=== PATIENT | female | born 1940 | race Caucasian/White ===

== ENCOUNTER 2020-07-16 08:39 | Outpatient (REF) | payer MEDICARE, SELFPAY ==
[2020-07-16 11:31] LABS: Alanine Aminotransferase 13 U/L (0-31); Aspartate Amino Transferase 17 U/L (5-31); Cholesterol 191 mg/dL; HDL Cholesterol 49 mg/dL; LDL Cholesterol Calculated 125 mg/dl; Triglycerides 87 mg/dL
== END 2020-07-16 08:40 | disposition home or self-care (01) ==
LOC: HO.HMGCLDS 08:39
PROVIDERS: PCP Internal Medicine; Visit Provider Internal Medicine
DX: E78.5 Hyperlipidemia, unspecified (principal)
CPT/HCPCS: 80061; 84450; 84460

== ENCOUNTER 2020-12-04 07:56 | Outpatient (REF) | payer MEDICARE, SELFPAY ==
[2020-12-04 12:07] LABS: Alanine Aminotransferase 14 U/L (0-31); Aspartate Amino Transferase 18 U/L (5-31); Cholesterol 171 mg/dL; HDL Cholesterol 60 mg/dL; LDL Cholesterol Calculated 96 mg/dl; Triglycerides 76 mg/dL
== END 2020-12-04 07:57 | disposition home or self-care (01) ==
LOC: HO.HMGCLDS 07:56
PROVIDERS: PCP Internal Medicine; Visit Provider Internal Medicine
DX: E78.5 Hyperlipidemia, unspecified (principal)
CPT/HCPCS: 36415; 80061; 84450; 84460

== ENCOUNTER 2021-01-31 16:55 | Emergency (ER) | payer MEDICARE, SELFPAY ==
--- NOTE | ~2021-01-31 | CT_ITS ---
EXAMINATION: CT HEAD WITHOUT CONTRAST CLINICAL INFORMATION: Head injury 6 weeks ago. Ongoing headache. COMPARISON: CT head 02/10/2015 TECHNIQUE: Contiguous axial imaging was performed from the skull base to vertex without intravenous administration of contrast. This CT examination was performed using dose optimization techniques as appropriate, variously including the following: *Automated exposure control *Adjustment of mA and/or kV according to patient size (this includes techniques or standardized protocols for targeted exams where dose is matched to indication/reason for exam; i.e. extremities or head) *Use of iterative reconstruction technique DLP: 670 mGy-cm FINDINGS: There is no evidence of acute intracranial hemorrhage or territorial infarction. No abnormal mass effect or midline shift is seen. [place] to white matter differentiation is well preserved. No extra-axial fluid collections are identified. The ventricles are normal in size. There is no abnormal attenuation within the brain parenchyma. The osseous structures and soft tissues are normal. The mastoid air cells and visualized portions of the paranasal sinuses are well aerated. CT/CT head/brain wo con IMPRESSION: No acute intracranial pathology.
[2021-01-31 18:00] VITALS: BP 153/64; PULSE 72; RESP 18; TEMP 36.6; O2SAT 99; BMI 33.3
[2021-01-31 20:12] VITALS: BP 176/58; PULSE 68; RESP 16; TEMP 36.7; O2SAT 99
--- NOTE | 2021-01-31 21:46 | ED_ITS ---
HPI - Headache General Chief Complaint: Headache Stated Complaint: Head pain Time Seen by Provider: 01/31/21 21:14 Source: patient Mode of arrival: ambulatory Limitations: no limitations History of Present Illness HPI Narrative: Patient comes emergency room complaining of scalp pain in different areas at different times. Patient states on December 19, patient got hit in the head by the trunk door as it was showering. Initially patient had a lump in her head, self resolved. Patient denies being on blood thinners. Patient did not lose consciousness. Patient states that since then, it has been 6 weeks, but she continues having intermittent scalp pain in different areas of her head. Patient denies headache. Patient went to see her primary care physician, she was advised to come to the emergency room for further evaluation. Patient denies neck pain, no arm pain, no back pain, no other injuries Related Data Home Medications Medication Instructions Recorded Confirmed aspirin 81 mg tablet,delayed 81 mg PO DAILY 07/22/20 12/13/20 release cholecalciferol (vitamin D3) 25 25 mcg PO DAILY 07/22/20 12/13/20 mcg (1,000 unit) capsule flu vacc (65yr IM 07/22/20 12/13/20 up)-MF59C(PF) 60 mcg(15 mcgx4)/0.5 mL IM syringe diphenhydramine 25 ml PO 12/13/20 12/13/20 mg-acetaminophen 500 mg/15 mL oral solution lxdouqmi-qyhqfvn-tewq-lutein tablet tab PO 12/13/20 12/13/20 multivitamin with minerals 1 tab PO DAILY 12/13/20 12/13/20 Previous Rx's Medication Instructions Recorded furosemide 20 mg tablet 20 mg PO DAILY #90 tab 12/13/20 ibuprofen 800 mg tablet 800 mg PO Q12H PRN #60 tab 12/13/20 rosuvastatin 5 mg tablet 5 mg PO .q OD 90 Days #45 tab 12/13/20 Allergies Allergy/AdvReac Type Severity Reaction Status Date / Time Sulfa (Sulfonamide Allergy Intermediate SKIN Verified 01/31/21 18:00 Antibiotics) SLOUGHING MOUTH Review of Systems Review of Systems: Constitutional : No Weight loss, No Fever, No Chills, No Night Sweats, No Fatigue, No Malaise ENT/Mouth : No Hearing loss, No Ear Pain, No Nasal Congestion, No Sinus Pain, No Hoarseness, No sore throat, No Rhinorrhea, No Swallowing Difficulty Eyes: No Eye Pain, No Swelling, No Redness, No Foreign Body, No Discharge, No Vision Changes Cardiovascular : No Chest Pain, No SOB, No Dyspnea on Exertion, No Orthopnea, No Edema, No Palpitations Respiratory : No Cough, No Sputum, No Wheezing, No Smoke Exposure, No Dyspnea Gastrointestinal : No Nausea, No Vomiting, No Diarrhea, No Constipation, No abdominal Pain, No Hematochezia, No Melena Genitourinary : no irregular bleeding, No Dysuria, No Urinary Frequency, No Hematuria, No Urinary Incontinence, No Urgency, No Flank Pain, No Urinary Flow Changes, No Hesitancy Musculoskeletal : No joint pain, No Myalgias, No Joint Swelling Skin : No Skin Lesions, No rash Neuro : No Weakness, No Numbness, No Paresthesias, No Loss of Consciousness, No Dizziness, No Headache, but complaining of scalp discomfort in different areas o f the head intermittently Psych : No Anxiety/Panic, No Depression, No SI/HI/AH/VH, No Social Issues, Heme/Lymph: No Bruising, No Bleeding,No Lymphadenopathy Endocrine : No Polyuria, No Polydipsia, No Temperature Intolerance PMFSH Past Medical History Medical History Hip fracture, left Hyperlipidemia Obesity Osteoarthritis of hip Osteoarthritis of hip Severe aortic stenosis Severe aortic stenosis Surgical History History of arthroscopic knee surgery History of hip surgery History of surgery Family History Family History Father Medical history non-contributory Mother Medical history non-contributory Social History Social History Alcohol intake: never Smoking Status: Never smoker Use of substances other than those prescribed or required for medical reasons: No Advance Directives: No Physical Exam Vital Signs: Vital Signs: Last Vital Signs Temp 97.8 F 01/31/21 22:00 Pulse 64 01/31/21 22:00 Resp 16 01/31/21 22:00 BP 152/72 H 01/31/21 22:00 Pulse Ox 99 01/31/21 22:00 Body Mass Index 33.3 Appearance: Alert. Oriented X3. No acute distress. Eyes: Pupils equal, round and reactive to light. ENT: Pharynx normal. Neck: Normal inspection. Neck supple. No lymph nodes noted. No crepitus CVS: Normal heart rate and rhythm. Pulses normal. Normal S1 and S2 Respiratory: No respiratory distress. Breath sounds normal. No Wheezing. No rales Abdomen: Soft and nontender. No rigidity. No distention. good BS x4 Skin: Skin warm and dry. Normal skin color. Normal skin turgor. Scalp within normal limits, no ecchymosis, no vesicles, no rash Extremities: No lower extremity edema. No lower extremity edema. No Lacerations. No Rash Neuro: Oriented X 3. No motor deficit. No sensory deficit. Moving all extermities. No slurred speech. Course Course Course Narrative: I discussed CT scan with the patient, no acute findings. Patient denies headache or any other neurological symptoms MDM - Headache Imaging Data Head CT: Radiologist's impression: FINDINGS: There is no evidence of acute intracranial hemorrhage or territorial infarction. No abnormal mass effect or midline shift is seen. [place] to white matter differentiation is well preserved. No extra-axial fluid collections are identified. The ventricles are normal in size. There is no abnormal attenuation within the brain parenchyma. The osseous structures and soft tissues are normal. The mastoid air cells and visualized portions of the paranasal sinuses are well aerated. CT/CT head/brain wo con IMPRESSION: No acute intracranial pathology. Discharge Plan Discharge Clinical Impression: Scalp pain Patient Disposition: Home, Self-Care Instructions: Acute Headache (ED) Additional Instructions: Please follow-up with your primary care physician tomorrow. If you have any worsening or new symptoms, please return to the emergency room or call 911 Prescriptions: No Action Fluad Quad 2019-(65y up)(PF) 60 mcg (15 mcg x 4)/0.5 mL syringe IM RF: 0 cholecalciferol (vitamin D3) 25 mcg (1,000 unit) capsule 25 mcg PO DAILY RF: 0 aspirin [Adult Low Dose Aspirin] 81 mg tablet,delayed release (DR/EC) 81 mg PO DAILY RF: 0 yafjrzin-tsswbiv-xsss-lutein Tablet PO RF: 0 multivitamin with minerals [Hair,Skin and Nails] Tablet 1 tab PO DAILY RF: 0 diphenhydramine-acetaminophen 25-500 mg-mg/mL solution PO RF: 0 ibuprofen 800 mg tablet 800 mg PO Q12H PRN (Reason: pain) Qty: 60 RF: 1 furosemide 20 mg tablet 20 mg PO DAILY Qty: 90 RF: 0 rosuvastatin 5 mg tablet 5 mg PO .q OD 90 Days Qty: 45 RF: 2
[2021-01-31 22:00] VITALS: BP 152/72; PULSE 64; RESP 16; TEMP 36.6; O2SAT 99
== END 2021-01-31 23:06 | disposition home or self-care (01) ==
PROVIDERS: Emergency Provider Emergency Medicine; PCP Internal Medicine
DX: R20.8 Other disturbances of skin sensation (principal); E78.5 Hyperlipidemia, unspecified; Z79.82 Long term (current) use of aspirin
CPT/HCPCS: 70450; 99284

== ENCOUNTER 2021-04-30 07:59 | Outpatient (REF) | payer MEDICARE, SELFPAY ==
--- NOTE | ~2021-04-30 | XR_ITS ---
EXAMINATION: KNEE X-RAY CLINICAL INFORMATION: Pain COMPARISON: Previous x-ray most recent December 2019 TECHNIQUE: Standing AP view of both knees and lateral and sunrise view of the right knee FINDINGS: Right knee: There may be mild varus angulation. No fracture or dislocation is seen. There is arthritis at the medial femoral tibial and patellofemoral joints. There is a small joint effusion. There is evidence of atherosclerotic disease. Standing AP view of the left knee demonstrates medial femoral tibial joint space narrowing and lateral femoral tibial meniscal calcification. XR/XR knee RT 2V IMPRESSION: Bilateral arthritis.
--- NOTE | ~2021-04-30 | XR_ITS ---
EXAMINATION: KNEE X-RAY CLINICAL INFORMATION: Pain COMPARISON: Previous x-ray most recent December 2019 TECHNIQUE: Standing AP view of both knees and lateral and sunrise view of the right knee FINDINGS: Right knee: There may be mild varus angulation. No fracture or dislocation is seen. There is arthritis at the medial femoral tibial and patellofemoral joints. There is a small joint effusion. There is evidence of atherosclerotic disease. Standing AP view of the left knee demonstrates medial femoral tibial joint space narrowing and lateral femoral tibial meniscal calcification. XR/XR knee standing BI IMPRESSION: Bilateral arthritis.
== END 2021-04-30 08:00 | disposition home or self-care (01) ==
LOC: HO.HOSX 07:59
PROVIDERS: Visit Provider Orthopaedic Surgery
DX: M17.11 Unilateral primary osteoarthritis, right knee (principal)
CPT/HCPCS: 20610; 73560; 73565; 99212; J1040

== ENCOUNTER 2021-09-09 08:24 | Outpatient (REF) | payer MEDICARE, SELFPAY ==
[2021-09-09 12:14] LABS: Alanine Aminotransferase 11 U/L (0-31); Anion Gap 11 (12-20); Aspartate Amino Transferase 16 U/L (5-31); Blood Urea Nitrogen 19 mg/dL (9-16); Calcium 9.2 mg/dL (8.4-10.2); Carbon Dioxide 25 mmol/L (22-29); Chloride 110 mmol/L (96-108); Cholesterol 189 mg/dL; Estimated Glomerular Filt Rate > 60; Glucose Fasting 112 mg/dL (60-99); HDL Cholesterol 49 mg/dL; LDL Cholesterol Calculated 123 mg/dl; Potassium 4.4 mmol/L (3.3-5.1); Sodium 142 mmol/L (135-145); Triglycerides 87 mg/dL
[2021-09-09 12:36] LABS: Vitamin D 25-OH Total 25.1 ng/mL (>30)
== END 2021-09-09 08:25 | disposition home or self-care (01) ==
LOC: HO.HMGCLDS 08:24
PROVIDERS: PCP Internal Medicine; Visit Provider Internal Medicine
DX: I35.0 Nonrheumatic aortic (valve) stenosis (principal); E66.9 Obesity, unspecified; E78.2 Mixed hyperlipidemia; I10 Essential (primary) hypertension; Z78.0 Asymptomatic menopausal state
CPT/HCPCS: 36415; 80048; 80061; 82306; 84450; 84460

== ENCOUNTER 2021-10-02 10:22 | Outpatient (REF) | payer MEDICARE, SELFPAY ==
--- NOTE | ~2021-10-02 | MM_ITS ---
EXAMINATION: BONE DENSITOMETRY CLINICAL INDICATION: Other specified disorders of bone density and structure. COMPARISON: Previous BD dated 05/13/2018 and baseline BD dated 09/04/2009. TECHNIQUE: Using a CRM[employer] DXA System (software version: 13.1) manufactured by [employer], dual-energy x-ray absorptiometry was performed of the lumbar spine and right forearm radius 33%. The images are of good technical quality. Summary results are attached. FINDINGS: AP SPINE L1-L4: Current: BMD 1.052 g/cm2, Z-score -0.4, T-score -1.1, osteopenia, 0.9% increase from previous, 8.8% decrease from baseline (<5% change is not significant). Prior: BMD 1.043 g/cm2. Baseline: BMD 1.154 g/cm2. RIGHT FEMUR, NECK: Current: BMD 0.787 g/cm2, Z-score -0.4, T-score -1.8, osteopenia. Prior: BMD 0.795 g/cm2. Baseline: BMD 0.799 g/cm2. RIGHT FEMUR, TOTAL: Current: BMD 0.701 g/cm2, Z-score -1.3, T-score -2.4, osteopenia, 6.0% decrease from previous, 12.4% decrease from baseline (<5% change is not significant). Prior: BMD 0.746 g/cm2. Baseline: BMD 0.800 g/cm2. IDENTIFIED RISK FACTORS: Height loss, low calcium intake, family history (parental hip fracture), history of fracture (adult), menopause. HISTORY OF FRACTURE: Femur/hip. MEDICATIONS: Vitamin D. MM/XR DEXA axial skeleton IMPRESSION: 1. DIAGNOSIS: Osteopenia based on the lowest T-score value of -2.4 in the total femur applying World Health Organization criteria. 2. 10-YEAR FRACTURE RISK PREDICTION, FRAX: Major osteoporotic fracture (clinical spine, forearm, hip or shoulder) 32.6%. Hip fracture 18.5%. 3. Treatment Recommendations: NOF guidelines recommend consideration for treatment in postmenopausal women and men age 50 and older presenting with the following: -A hip or vertebral (clinical or morphometric) fracture. -T-score less than or equal to -2.5 at the femoral neck or spine after appropriate evaluation to exclude secondary causes. -Low bone mass at the hip or spine and a 10-year fracture probability by FRAX of greater than or equal to 3% for hip fracture or greater than or equal to 20% for major osteoporotic fracture based on the [place] adapted WHO algorithm. 4. Other Recommendations: All treatment decisions require clinical judgment and consideration of individual patient factors, including patient preferences, comorbidities, previous drug use, risk factors not captured in the FRAX model (e.g. frailty, falls, vitamin D deficiency, increased bone turnover, interval significant decline in bone density) and possible under or overestimation of fracture risk by FRAX. Additional medical evaluation for secondary cause of low bone mineral density may be appropriate. FUTURE SCAN RECOMMENDATION: People with diagnosed cases of osteoporosis or at high risk for fracture should have regular bone mineral density tests. For patients eligible for Medicare, routine testing is allowed once every 2 years. The testing frequency can be increased to one year for patients who have rapidly progressing disease, those who are receiving or discontinuing medical therapy to restore bone mass, or have additional risk factors.
== END 2021-10-02 10:23 | disposition home or self-care (01) ==
LOC: HO.MAMMO 10:22
PROVIDERS: Visit Provider Internal Medicine
DX: Z13.820 Encounter for screening for osteoporosis (principal); M85.89 Other specified disorders of bone density and structure, multiple sites; E83.51 Hypocalcemia; Z78.0 Asymptomatic menopausal state; Z79.899 Other long term (current) drug therapy
CPT/HCPCS: 77080

== ENCOUNTER 2021-10-11 23:57 | Emergency (ER) | payer MEDICARE, SELFPAY ==
--- NOTE | ~2021-10-11 | CT_ITS ---
EXAMINATION: CT ANGIOGRAM HEAD AND NECK CLINICAL INFORMATION: Right eye blurry vision. Improving. COMPARISON: 01.31.2021 TECHNIQUE: Unenhanced CT examination of the head was performed initially. Test bolus sequences followed by intravenous administration 70 mL of Omnipaque 350 intravenous contrast. Helical imaging was performed in the axial plane from the mediastinum to the skull vertex. Delayed postcontrast imaging of the head was also performed. The data was processed at the seating and mobility technologist's workstation for generation of MIP sequences. Three-dimensional volume rendered reformatted images were also generated at an offline 3-D workstation. This CT examination was performed using dose optimization techniques as appropriate, variously including the following: *Automated exposure control *Adjustment of mA and/or kV according to patient size (this includes techniques or standardized protocols for targeted exams where dose is matched to indication/reason for exam; i.e. extremities or head) *Use of iterative reconstruction technique The degree of stenosis determined by NASCET criteria. DLP: 2290 mGy-cm FINDINGS: SOFT TISSUES AND LUNG APICES: No overt abnormality is appreciated. CTA NECK: The aortic arch has a classic configuration and the major arch vessel origins are non-stenotic. The vertebral arteries are co-dominant and both vertebral origins are widely patent. Both common carotid arteries are normal in course and caliber. Both internal carotid arteries demonstrate mild atherosclerotic plaque without significant stenosis. CTA HEAD: There is normal opacification of the major intracranial vessels. Ophthalmic arteries are patent bilaterally. Cavernous carotid calcifications present bilaterally. Left A1 segment is diminutive with respect to the right in part developmental, exacerbated by atherosclerotic vascular disease. Mild focal narrowing of the distal left M1. No acute proximal large vessel occlusion, focal flow-limiting stenosis, or saccular intracranial aneurysm is identified. No abnormal parenchymal enhancement or regional oligemia is visualized. HEAD (noncontrast and delayed): No intracranial mass, intercerebral edema, hemorrhage, or midline shift is evident. The ventricles and sulci are stable in size and configuration. No extra-axial collections are appreciated. No pathologic intracranial enhancement. Dural sinuses are patent. The paranasal sinuses are well-aerated and clear. CT/CT angio head neck IMPRESSION: No occlusion or hemodynamically significant stenosis within the intracranial or extracranial arterial vasculature.
[2021-10-12 00:12] VITALS: BP 184/65; PULSE 79; RESP 20; TEMP 36.7; O2SAT 97; BMI 35.5
--- NOTE | 2021-10-12 01:13 | ECG_ITS ---
Test Reason : SUDDEN BLINDNE Blood Pressure : / mmHG Vent. Rate : 066 BPM Atrial Rate : 066 BPM P-R Int : 178 ms QRS Dur : 088 ms QT Int : 426 ms P-R-T Axes : 077 -23 041 degrees QTc Int : 446 ms Normal sinus rhythm Left ventricular hypertrophy with repolarization abnormality ( R in aVL , [place] product ) Abnormal ECG When compared with ECG of 10-FEB-2015 01:36, Nonspecific T wave abnormality now evident in Lateral leads Referred By: Silvia Lutz Electronically Signed By:SHARRI SALMERON
--- NOTE | 2021-10-12 01:16 | ED_ITS ---
HPI - General Adult General Chief complaint: General Medical Stated complaint: cant see from right eye Time Seen by Provider: 10/12/21 01:13 Source: patient Mode of arrival: ambulatory History of Present Illness HPI narrative: 80-year-old female with presentation for acute onset of blurry vision who states that she covered her left eye and says that all she could see was yellow and purple lines coming out from the center. She states that she does not have any pain in the eye, no pain with movement, no headache, no gait instability, and denies any extremity numbness/tingling/weakness or noted changes in speech or hearing. Patient states that her vision has improved since that started and denies any recent medication changes or new medications other than being started on vitamin-D. Related Data Home Medications Medication Instructions Recorded Confirmed aspirin 81 mg tablet,delayed 81 mg PO DAILY 07/22/20 09/12/21 release (Adult Low Dose Aspirin) cholecalciferol (vitamin D3) 25 25 mcg PO DAILY 07/22/20 09/12/21 mcg (1,000 unit) capsule flu vacc (65yr IM 07/22/20 09/12/21 up)-MF59C(PF) 60 mcg(15 mcgx4)/0.5 mL IM syringe funnfhbi-yiwgmkn-xxgc-lutein tablet tab PO 12/13/20 09/12/21 Previous Rx's Medication Instructions Recorded rosuvastatin 5 mg tablet 5 mg PO .q OD 90 Days #45 tab 12/13/20 furosemide 20 mg tablet 20 mg PO DAILY #90 tab 06/17/21 ibuprofen 800 mg tablet 800 mg PO Q12H PRN #60 tab 06/17/21 cholecalciferol (vitamin D3) 1,250 1,250 mcg PO QWEEK 90 Days #13 cap 09/12/21 mcg (50,000 unit) capsule Allergies Allergy/AdvReac Type Severity Reaction Status Date / Time Sulfa (Sulfonamide Allergy Intermediate SKIN Verified 09/12/21 10:03 Antibiotics) SLOUGHING MOUTH Review of Systems Review of Systems: Pertinent positives and negatives as stated in HPI 10 point review of systems is otherwise negative. PMFSH Past Medical History Source: nursing notes reviewed Medical History Chronic venous insufficiency of lower extremity Hip fracture, left Hyperlipidemia Obesity Osteoarthritis of hip Osteoarthritis of hip Osteopenia of multiple sites Severe aortic stenosis Severe aortic stenosis Surgical History History of arthroscopic knee surgery History of hip surgery History of surgery Family History Family History Father Medical history non-contributory Mother Medical history non-contributory Brother No problems noted. Son Substance use disorder Social History Social History Housing: House Alcohol intake: current Alcohol intake frequency: holidays/special occasions only Patient Tobacco Use Status: Never used Tobacco Use of substances other than those prescribed or required for medical reasons: No Advance Directives: No Advance Directives Information Provided: Yes service: No Current occupational status: retired Physical Exam Vital Signs: Vital Signs: Last Vital Signs Temp 98.1 F 10/12/21 00:12 Pulse 79 10/12/21 00:12 Resp 20 10/12/21 00:12 BP 184/65 H 10/12/21 00:12 Pulse Ox 97 10/12/21 00:12 BMI result Body Mass Index 35.5 VITAL SIGNS: Reviewed. GENERAL: Well developed, well nourished, in no acute distress. HEAD: Normocephalic/atraumatic, EYES: PERRLA, EOMI intact without pain, no nystagmus, no conjunctival injection, consensual pupillary reaction EARS: Ext canals without abnormality, TMs non-bulging and non-erythematous NOSE: Nares patent bilateral OROPHARYNX: no oral lesions noted, posterior pharynx clear LUNGS: Normal breath sounds. No adventitious sounds or accessory muscle use. SpO2<97> CARDIOVASCULAR: Regular rate and rhythm with noted murmur ABDOMEN: Soft, non-tender, non-distended with bowel sounds. NEUROLOGIC: Alert and oriented x 4. Visual vidales are intact, patient able to discern number of fingers, no facial asymmetry, no pronator drift, no ataxic gait (uses a cane at baseline), cranial nerves 2-12 otherwise grossly intact. Course Course Course Narrative: 80-year-old female with history and clinical presentation most consistent with optimal logic etiology and low clinical suspicion for TIA/stroke. Symptoms have begun to improve. Review of all investigations only significant for mild hypokalemia and this was repleted with 60 mEq orally. On review of all imaging studies there are no acute findings to suggest intracranial pathology, patient is purple vision quality in the right eye has persisted and when specifically asked in close proximity she is unable to visualize anything in the center. This further cooperates the consultants suspicions that this may be macular in etiology. Patient was informed that the plan would be for her to follow-up with ophthalmology on Wednesday and she fully understands that she would be going home with still seeing purple vision, she has a safe ride with her niece, and knows that she should return if there are any changes to her vision as well as any associated symptoms such as numbness/tingling. Reevaluation(s) Reevaluation #1: I discussed this case with Ophthalmology, Dr Espitia, who thinks that based on presentation this may be most consistent with macular etiology or hemorrhage. Both of these conditions would be recommended follow-up with ophthalmology. Time: 01:27 Medical Decision Making Lab Data Result diagrams: 10/12/21 01:41 10/12/21 01:41 Labs: Lab Results 10/12/21 10/12/21 10/12/21 Range/Units 01:41 01:41 01:41 WBC 4.1 L (4.8-10.8) X10*3/uL RBC 3.72 L (4.20-5.50) X10*6/uL Hgb 11.6 L (12.0-16.0) g/dl Hct 36.1 L (37.0-47.0) % MCV 97.0 (80.0-98.0) fL MCH 31.2 (27.0-33.0) pg MCHC 32.1 (31.0-35.0) g/dl RDW 12.8 (11.0-16.0) % Plt Count 168 (160-400) X10*3/uL MPV 9.0 L (9.4-12.3) fL Immature Gran % (Auto) 0.2 (0.0-0.4) % Neut % (Auto) 40.1 L (45-73) % Lymph % (Auto) 43.0 H (20-40) % [place] % (Auto) 11.4 H (2-11) % Eos % (Auto) 4.6 H (0-4) % Baso % (Auto) 0.7 (0-2) % Lymph # (Auto) 1.8 (1.2-4.9) X10*3/uL [place] # (Auto) 0.5 (0.1-1.2) X10*3/uL Eos # (Auto) 0.2 (0.0-0.4) X10*3/uL Baso # (Auto) 0.0 (0.0-0.2) X10*3/uL Abs Immat Gran (auto) 0.01 (0.00-0.03) X10*3/uL Absolute Neuts (auto) 1.7 L (2.0-8.3) x10*3/uL Absolute Nucleated RBC 0.000 (0.0-0.012) X10*3/uL Nucleated RBC % (auto) 0.0 (0.0-0.2) /100WBC PT 11.2 (9.9-13.0) SEC INR 1.0 (0.9-1.1) Sodium 144 (135-145) mmol/L Potassium 3.1 L D (3.3-5.1) mmol/L Chloride 116 H (96-108) mmol/L Carbon Dioxide 23 (22-29) mmol/L Anion Gap 8 L (12-20) BUN 17 H (9-16) mg/dL Creatinine 0.66 (0.5-1.4) mg/dL Estim Creat Clear Calc 82.4 Estimated GFR > 60 Random Glucose 112 (60-115) mg/dL Calcium 7.3 L D (8.4-10.2) mg/dL Total Bilirubin 0.3 (0.0-1.0) mg/dL AST 13 (5-31) U/L ALT 10 (0-31) U/L Alkaline Phosphatase 58 (39-117) U/L Total Protein 5.4 L (6.5-8.0) g/dL Albumin 3.2 L (3.5-5.0) g/dL ECG Data Attestation: I personally reviewed and interpreted this ECG as follows: Prior ECG tracings: available for review Interpretation: Normal sinus rhythm, HR again 66, no STEMI, ND/QRS/QTC are within normal limits. Discharge Plan Discharge Clinical Impression: Abnormal vision Patient Disposition: Home, Self-Care Instructions: Blurred Vision (ED) Additional Instructions: 1. Your entire workup has only been significant for a mild low potassium level for which she were provided oral potassium chloride. This is not life- threatening. 2. It is suspected after speaking with our ophthalmology moving consultant that you may have an abnormality of your macula. 3. Follow-up with Ophthalmology on Wednesday morning as well as contacting your primary care provider in case you need a referral. 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 Return to the ER for worsening symptoms such as worsening right eye vision, pain in the right eye, changes in speech, or extremity numbness/tingling/weakness. Prescriptions: No Action furosemide 20 mg tablet 20 mg PO DAILY Qty: 90 RF: 0 ibuprofen 800 mg tablet 800 mg PO Q12H PRN (Reason: pain) Qty: 60 RF: 1 Fluad Quad 2019-(65y up)(PF) 60 mcg (15 mcg x 4)/0.5 mL syringe IM RF: 0 cholecalciferol (vitamin D3) 25 mcg (1,000 unit) capsule 25 mcg PO DAILY RF: 0 aspirin [Adult Low Dose Aspirin] 81 mg tablet,delayed release (DR/EC) 81 mg PO DAILY RF: 0 oxaanjny-gqaduzv-uikn-lutein Tablet PO RF: 0 rosuvastatin 5 mg tablet 5 mg PO .q OD 90 Days Qty: 45 RF: 2 cholecalciferol (vitamin D3) 1,250 mcg (50,000 unit) capsule 1,250 mcg PO QWEEK 90 Days Qty: 13 RF: 0 Referrals: Bernice Ca MD [Primary Care Provider] - 2 days Srinivas Espitia [Physician] - 2 days (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
[2021-10-12 01:47] LABS: Basophils Percent Auto 0.7 % (0-2); Eosinophils Absolute Auto 0.2 X10*3/uL (0.0-0.4); Eosinophils Percent Auto 4.6 % (0-4); Hematocrit 36.1 % (37.0-47.0); Hemoglobin 11.6 g/dl (12.0-16.0); Imm Gran Abs Auto 0.01 X10*3/uL (0.00-0.03); Imm Gran Pct Auto 0.2 % (0.0-0.4); Lymphocytes Absolute Auto 1.8 X10*3/uL (1.2-4.9); MANUAL DIFF FLAG NO; Mean Corpuscular HGB Conc 32.1 g/dl (31.0-35.0); Mean Corpuscular Hemoglobin 31.2 pg (27.0-33.0); Monocytes Absolute Auto 0.5 X10*3/uL (0.1-1.2); Monocytes Percent Auto 11.4 % (2-11); Neutrophils Absolute Auto 1.7 x10*3/uL (2.0-8.3); Neutrophils Percent Auto 40.1 % (45-73); Platelet Count 168 X10*3/uL (160-400); Red Blood Count 3.72 X10*6/uL (4.20-5.50); Red Cell Distribution Width 12.8 % (11.0-16.0); White Blood Count 4.1 X10*3/uL (4.8-10.8)
[2021-10-12 01:52] LABS: Prothrombin Time 11.2 SEC (9.9-13.0)
[2021-10-12 02:17] LABS: Alanine Aminotransferase 10 U/L (0-31); Albumin Level 3.2 g/dL (3.5-5.0); Alkaline Phosphatase 58 U/L (39-117); Anion Gap 8 (12-20); Aspartate Amino Transferase 13 U/L (5-31); Bilirubin Total 0.3 mg/dL (0.0-1.0); Blood Urea Nitrogen 17 mg/dL (9-16); Calcium 7.3 mg/dL (8.4-10.2); Carbon Dioxide 23 mmol/L (22-29); Chloride 116 mmol/L (96-108); Creatinine Clr Calc Pharmacy 82.4; Estimated Glomerular Filt Rate > 60; Glucose Random 112 mg/dL (60-115); Potassium 3.1 mmol/L (3.3-5.1); Sodium 144 mmol/L (135-145); Total Protein 5.4 g/dL (6.5-8.0)
[2021-10-12] MEDS: iohexoL 350 MG/ML 100 ML INFUS..BTL 70 ML IV (03:06)
[2021-10-12 04:43] LABS: Appearance Urine HAZY; Color Urine YELLOW; Glucose Urine UA NEG (NEG); Leukocyte Esterase Urine NEG (NEG); Nitrite Urine POS (NEG); PH 5.5 (5.0-8.0); UACC Culture Trigger YES; Urine Blood 2+ (NEG); Urine Ketones NEG (NEG); Urine Protein NEG (NEG-TRACE)
[2021-10-12 04:48] LABS: RBC Urine 0-2 /HPF (0)
[2021-10-12 04:49] LABS: Bacteria Urine 4+ /LPF; Squamous Epithelial Cell Urine 2+ /LPF
[2021-10-12] MEDS: Potassium Chloride ER 20 MEQ TAB.ER.PRT 60 MEQ PO (05:13)
== END 2021-10-12 05:22 | disposition home or self-care (01) ==
PROVIDERS: Emergency Provider Student in an Organized Health Care Education/Training Program; PCP Internal Medicine
DX: H53.8 Other visual disturbances (principal)
CPT/HCPCS: 36415; 70496; 70498; 80053; 81001; 85025; 85610; 93005; 99284; Q9967

== ENCOUNTER → 2021-12-08 09:37 | Outpatient (BNVA) | payer MEDICARE, SELFPAY | PROVIDERS: PCP Internal Medicine; Visit Provider Orthopaedic Surgery | DX: M17.11 Unilateral primary osteoarthritis, right knee (principal) | CPT/HCPCS: 20610; 99212; J1100 ==

== ENCOUNTER 2021-12-19 09:10 | Outpatient (REF) | payer MEDICARE, SELFPAY ==
[2021-12-19 11:36] LABS: Prothrombin Time 11.7 SEC (9.9-13.0)
== END 2021-12-19 09:11 | disposition home or self-care (01) ==
LOC: HO.HMGCLDS 09:10
PROVIDERS: PCP Internal Medicine; Visit Provider Nurse Practitioner
DX: I48.0 Paroxysmal atrial fibrillation (principal)
CPT/HCPCS: 36415; 85610

== ENCOUNTER 2021-12-29 10:04 | Outpatient (REF) | payer MEDICARE, SELFPAY ==
[2021-12-29 11:53] LABS: INTERNATIONAL NORM RATIO 1.3 (0.9-1.1); Prothrombin Time 14.8 SEC (9.9-13.0)
== END 2021-12-29 10:05 | disposition home or self-care (01) ==
LOC: HO.HMGCLR 10:04
PROVIDERS: PCP Internal Medicine; Visit Provider Nurse Practitioner
DX: I48.0 Paroxysmal atrial fibrillation (principal)
CPT/HCPCS: 36415; 85610

== ENCOUNTER 2022-01-05 09:00 | Outpatient (REF) | payer MEDICARE, SELFPAY ==
[2022-01-05 12:11] LABS: INTERNATIONAL NORM RATIO 1.5 (0.9-1.1); Prothrombin Time 17.7 SEC (9.9-13.0)
[2022-01-05 12:45] LABS: Vitamin D 25-OH Total 43.1 ng/mL (>30)
[2022-01-05 12:51] LABS: Alanine Aminotransferase 12 U/L (0-31); Anion Gap 10 (12-20); Aspartate Amino Transferase 17 U/L (5-31); Blood Urea Nitrogen 18 mg/dL (9-16); Calcium 9.2 mg/dL (8.4-10.2); Carbon Dioxide 26 mmol/L (22-29); Chloride 107 mmol/L (96-108); Cholesterol 147 mg/dL; Estimated Glomerular Filt Rate > 60; Glucose Fasting 116 mg/dL (60-99); HDL Cholesterol 52 mg/dL; LDL Cholesterol Calculated 84 mg/dl; Potassium 4.2 mmol/L (3.3-5.1); Sodium 139 mmol/L (135-145); Triglycerides 59 mg/dL
== END 2022-01-05 09:01 | disposition home or self-care (01) ==
LOC: HO.HMGCLR 09:00
PROVIDERS: Absent Provider Nurse Practitioner; Visit Provider Internal Medicine
DX: I35.0 Nonrheumatic aortic (valve) stenosis (principal); I48.0 Paroxysmal atrial fibrillation; I10 Essential (primary) hypertension; E78.2 Mixed hyperlipidemia; E55.9 Vitamin D deficiency, unspecified; Z79.01 Long term (current) use of anticoagulants
CPT/HCPCS: 36415; 80048; 80061; 82306; 84450; 84460; 85610

== ENCOUNTER 2022-01-12 10:16 | Outpatient (REF) | payer MEDICARE, SELFPAY ==
[2022-01-12 11:26] LABS: INTERNATIONAL NORM RATIO 1.5 (0.9-1.1); Prothrombin Time 17.3 SEC (9.9-13.0)
== END 2022-01-12 10:17 | disposition home or self-care (01) ==
LOC: HO.HMGCLR 10:16
PROVIDERS: Visit Provider Nurse Practitioner
DX: Z13.89 Encounter for screening for other disorder (principal)
CPT/HCPCS: 36415; 85610

== ENCOUNTER 2022-01-19 09:33 | Outpatient (REF) | payer MEDICARE, SELFPAY ==
[2022-01-19 11:24] LABS: INTERNATIONAL NORM RATIO 1.9 (0.9-1.1); Prothrombin Time 22.1 SEC (9.9-13.0)
== END 2022-01-19 09:34 | disposition home or self-care (01) ==
LOC: HO.HMGCLDS 09:33
PROVIDERS: PCP Internal Medicine; Visit Provider Nurse Practitioner
DX: I48.0 Paroxysmal atrial fibrillation (principal)
CPT/HCPCS: 36415; 85610

== ENCOUNTER 2022-01-26 09:09 | Outpatient (REF) | payer MEDICARE, SELFPAY ==
[2022-01-26 11:54] LABS: INTERNATIONAL NORM RATIO 1.9 (0.9-1.1); Prothrombin Time 22.3 SEC (9.9-13.0)
== END 2022-01-26 09:10 | disposition home or self-care (01) ==
LOC: HO.HMGCLR 09:09
PROVIDERS: Visit Provider Nurse Practitioner
DX: I48.0 Paroxysmal atrial fibrillation (principal)
CPT/HCPCS: 36415; 85610

== ENCOUNTER 2022-02-02 09:38 | Outpatient (REF) | payer MEDICARE, SELFPAY ==
[2022-02-02 12:05] LABS: INTERNATIONAL NORM RATIO 2.1 (0.9-1.1)
== END 2022-02-02 09:39 | disposition home or self-care (01) ==
LOC: HO.HMGCLR 09:38
PROVIDERS: Visit Provider Nurse Practitioner
DX: I48.0 Paroxysmal atrial fibrillation (principal)
CPT/HCPCS: 36415; 85610

== ENCOUNTER 2022-02-03 10:25 | Outpatient (REF) | payer MEDICARE, SELFPAY ==
--- NOTE | ~2022-02-03 | US_ITS ---
EXAMINATION: US EXTRACRANIAL CAROTID DUPLEX, BILATERAL CLINICAL INFORMATION: Right amaurosis fugax. Central retinal artery occlusion, right eye. COMPARISON: None TECHNIQUE: Real-time ultrasound and Doppler techniques (integrating B-mode 2-D vascular images, Doppler spectral analysis and color-flow Doppler imaging) were utilized to interrogate the extracranial carotid arteries, the vertebral arteries and proximal subclavian arteries bilaterally. The degree of stenosis is determined by criteria similar to NASCET. FINDINGS: Right Side: 1. There is mild hyperechoic atherosclerotic plaque seen in the bifurcation/proximal ICA region. 2. The common carotid artery PSV proximally is 82 cm/s and distally 63 cm/s. 3. The proximal internal carotid artery velocities are 93 cm/s systolic and 17 cm/s diastolic. 4. The proximal external carotid artery PSV is 99 cm/s. 5. The vertebral artery shows antegrade flow. 6. The subclavian artery waveforms are normal. Left Side: 1. There is mild hyperechoic atherosclerotic plaque seen in the bifurcation/proximal ICA region. 2. The common carotid artery PSV proximally is 120 cm/s and distally 84 cm/s. 3. The proximal internal carotid artery velocities are 94 cm/s systolic and 22 cm/s diastolic. 4. The proximal external carotid artery PSV is 96 cm/s. 5. The vertebral artery shows antegrade flow. 6. The subclavian artery waveforms are normal. US/US carotid duplex BI IMPRESSION: 1. RIGHT: Minimal, non-hemodynamically significant stenosis of the proximal right internal carotid artery corresponding to a 0-49% stenosis by velocity criteria. 2. LEFT: Minimal, non-hemodynamically significant stenosis of the proximal left internal carotid artery corresponding to a 0-49% stenosis by velocity criteria.
== END 2022-02-03 10:26 | disposition home or self-care (01) ==
LOC: HO.US 10:25
PROVIDERS: Visit Provider Internal Medicine
DX: H34.11 Central retinal artery occlusion, right eye (principal)
CPT/HCPCS: 93880

== ENCOUNTER 2022-02-09 10:20 | Outpatient (REF) | payer MEDICARE, SELFPAY ==
[2022-02-09 11:36] LABS: INTERNATIONAL NORM RATIO 2.7 (0.9-1.1); Prothrombin Time 31.1 SEC (9.9-13.0)
== END 2022-02-09 10:21 | disposition home or self-care (01) ==
LOC: HO.HMGCLDS 10:20
PROVIDERS: Visit Provider Nurse Practitioner
DX: Z13.89 Encounter for screening for other disorder (principal)
CPT/HCPCS: 36415; 85610

== ENCOUNTER 2022-02-23 15:00 | Outpatient (REF) | payer MEDICARE, SELFPAY ==
[2022-02-23 16:44] LABS: INTERNATIONAL NORM RATIO 2.1 (0.9-1.1); Prothrombin Time 23.8 SEC (9.9-13.0)
== END 2022-02-23 15:01 | disposition home or self-care (01) ==
LOC: HO.HMGCLR 15:00
PROVIDERS: Visit Provider Nurse Practitioner
DX: I48.0 Paroxysmal atrial fibrillation (principal)
CPT/HCPCS: 36415; 85610

== ENCOUNTER 2022-03-16 07:36 | Outpatient (REF) | payer MEDICARE, SELFPAY ==
[2022-03-16 13:00] LABS: INTERNATIONAL NORM RATIO 2.5 (0.9-1.1); Prothrombin Time 29.4 SEC (9.9-13.0)
== END 2022-03-16 07:37 | disposition home or self-care (01) ==
LOC: HO.HMGCLDS 07:36
PROVIDERS: PCP Internal Medicine; Visit Provider Nurse Practitioner
DX: I48.0 Paroxysmal atrial fibrillation (principal)
CPT/HCPCS: 36415; 85610

== ENCOUNTER 2022-04-14 10:31 | Outpatient (REF) | payer MEDICARE, SELFPAY ==
[2022-04-14 11:48] LABS: INTERNATIONAL NORM RATIO 2.9 (0.9-1.1); Prothrombin Time 35.4 SEC (10.0-13.1)
== END 2022-04-14 10:32 | disposition home or self-care (01) ==
LOC: HO.HMGCLR 10:31
PROVIDERS: Visit Provider Nurse Practitioner
DX: I48.0 Paroxysmal atrial fibrillation (principal); Z79.01 Long term (current) use of anticoagulants
CPT/HCPCS: 36415; 85610

== ENCOUNTER → 2022-04-16 12:38 | Outpatient (BNVA) | payer MEDICARE, SELFPAY | PROVIDERS: PCP Internal Medicine; Visit Provider Orthopaedic Surgery | DX: M17.11 Unilateral primary osteoarthritis, right knee (principal) | CPT/HCPCS: 20610; 99212; J1100 ==

== ENCOUNTER 2022-05-12 08:33 | Outpatient (REF) | payer MEDICARE, SELFPAY ==
[2022-05-12 11:36] LABS: INTERNATIONAL NORM RATIO 3.1 (0.9-1.1); Prothrombin Time 37.6 SEC (10.0-13.1)
== END 2022-05-12 08:34 | disposition home or self-care (01) ==
LOC: HO.HMGCLR 08:33
PROVIDERS: Visit Provider Nurse Practitioner
DX: I48.0 Paroxysmal atrial fibrillation (principal)
CPT/HCPCS: 36415; 85610

== ENCOUNTER 2022-05-25 14:59 | Outpatient (REF) | payer MEDICARE, SELFPAY ==
[2022-05-25 16:45] LABS: Prothrombin Time 35.6 SEC (10.0-13.1)
== END 2022-05-25 15:00 | disposition home or self-care (01) ==
LOC: HO.HMGCLR 14:59
PROVIDERS: PCP Internal Medicine; Visit Provider Nurse Practitioner
DX: I48.0 Paroxysmal atrial fibrillation (principal)
CPT/HCPCS: 36415; 85610

== ENCOUNTER 2022-06-18 14:09 | Outpatient (REF) | payer MEDICARE, SELFPAY ==
[2022-06-18 17:21] LABS: INTERNATIONAL NORM RATIO 1.5 (0.9-1.1); Prothrombin Time 17.4 SEC (10.0-13.1)
== END 2022-06-18 14:10 | disposition home or self-care (01) ==
LOC: HO.LABR 14:09
PROVIDERS: Visit Provider Nurse Practitioner
DX: I48.0 Paroxysmal atrial fibrillation (principal)
CPT/HCPCS: 36415; 85610

== ENCOUNTER 2022-06-22 08:23 | Outpatient (REF) | payer MEDICARE, SELFPAY ==
[2022-06-22 11:36] LABS: INTERNATIONAL NORM RATIO 2.5 (0.9-1.1); Prothrombin Time 29.9 SEC (10.0-13.1)
== END 2022-06-22 08:24 | disposition home or self-care (01) ==
LOC: HO.LABR 08:23
PROVIDERS: PCP Internal Medicine; Visit Provider Nurse Practitioner
DX: I48.0 Paroxysmal atrial fibrillation (principal)
CPT/HCPCS: 36415; 85610

== ENCOUNTER 2022-06-26 07:58 | Outpatient (REF) | payer MEDICARE, SELFPAY ==
[2022-06-26 11:23] LABS: INTERNATIONAL NORM RATIO 4.2 (0.9-1.1); Prothrombin Time 51.7 SEC (10.0-13.1)
== END 2022-06-26 07:59 | disposition home or self-care (01) ==
LOC: HO.HMGCLDS 07:58
PROVIDERS: Nurse Practitioner; PCP Internal Medicine; Visit Provider Family Medicine
DX: I48.0 Paroxysmal atrial fibrillation (principal)
CPT/HCPCS: 36415; 85610

== ENCOUNTER 2022-06-29 08:56 | Outpatient (REF) | payer MEDICARE, SELFPAY ==
[2022-06-29 11:37] LABS: INTERNATIONAL NORM RATIO 3.7 (0.9-1.1); Prothrombin Time 44.5 SEC (10.0-13.1)
== END 2022-06-29 08:57 | disposition home or self-care (01) ==
LOC: HO.LABR 08:56
PROVIDERS: Absent Provider Oral & Maxillofacial Surgery; PCP Internal Medicine; Visit Provider Nurse Practitioner
DX: I48.0 Paroxysmal atrial fibrillation (principal)
CPT/HCPCS: 36415; 85610

== ENCOUNTER 2022-07-01 08:00 | Outpatient (REF) | payer MEDICARE, SELFPAY ==
[2022-07-01 11:28] LABS: INTERNATIONAL NORM RATIO 2.3 (0.9-1.1); Prothrombin Time 27.2 SEC (10.0-13.1)
== END 2022-07-01 08:01 | disposition home or self-care (01) ==
LOC: HO.HMGCLDS 08:00
PROVIDERS: Absent Provider Oral & Maxillofacial Surgery; PCP Internal Medicine; Visit Provider Nurse Practitioner
DX: I48.0 Paroxysmal atrial fibrillation (principal); Z79.01 Long term (current) use of anticoagulants
CPT/HCPCS: 36415; 85610

== ENCOUNTER 2022-07-06 13:27 | Outpatient (REF) | payer MEDICARE, SELFPAY ==
[2022-07-06 18:41] LABS: INTERNATIONAL NORM RATIO 2.1 (0.9-1.1); Prothrombin Time 25.2 SEC (10.0-13.1)
== END 2022-07-06 13:28 | disposition home or self-care (01) ==
LOC: HO.LABR 13:27
PROVIDERS: PCP Internal Medicine; Visit Provider Nurse Practitioner
DX: I48.0 Paroxysmal atrial fibrillation (principal)
CPT/HCPCS: 36415; 85610

== ENCOUNTER 2022-07-10 07:34 | Outpatient (REF) | payer MEDICARE, SELFPAY ==
[2022-07-10 11:30] LABS: INTERNATIONAL NORM RATIO 3.1 (0.9-1.1); Prothrombin Time 37.6 SEC (10.0-13.1)
== END 2022-07-10 07:35 | disposition home or self-care (01) ==
LOC: HO.HMGCLDS 07:34
PROVIDERS: PCP Internal Medicine; Visit Provider Nurse Practitioner
DX: I48.0 Paroxysmal atrial fibrillation (principal)
CPT/HCPCS: 36415; 85610

== ENCOUNTER 2022-07-15 09:25 | Outpatient (REF) | payer MEDICARE, SELFPAY ==
[2022-07-15 11:25] LABS: INTERNATIONAL NORM RATIO 4.9 (0.9-1.1); Prothrombin Time 59.9 SEC (10.0-13.1)
== END 2022-07-15 09:26 | disposition home or self-care (01) ==
LOC: HO.LABR 09:25
PROVIDERS: PCP Internal Medicine; Visit Provider Nurse Practitioner
DX: I48.0 Paroxysmal atrial fibrillation (principal)
CPT/HCPCS: 36415; 85610

== ENCOUNTER 2022-07-16 09:04 | Outpatient (REF) | payer MEDICARE, SELFPAY ==
[2022-07-16 11:22] LABS: INTERNATIONAL NORM RATIO 4.4 (0.9-1.1); Prothrombin Time 54.1 SEC (10.0-13.1)
== END 2022-07-16 09:05 | disposition home or self-care (01) ==
LOC: HO.HMGCLR 09:04
PROVIDERS: PCP Internal Medicine; Visit Provider Nurse Practitioner
DX: I48.0 Paroxysmal atrial fibrillation (principal)
CPT/HCPCS: 36415; 85610

== ENCOUNTER 2022-07-22 09:19 | Outpatient (REF) | payer MEDICARE, SELFPAY ==
[2022-07-22 11:37] LABS: INTERNATIONAL NORM RATIO 1.1 (0.9-1.1); Prothrombin Time 12.1 SEC (10.0-13.1)
== END 2022-07-22 09:20 | disposition home or self-care (01) ==
LOC: HO.HMGCLR 09:19
PROVIDERS: PCP Internal Medicine; Visit Provider Nurse Practitioner
DX: I48.0 Paroxysmal atrial fibrillation (principal); Z79.01 Long term (current) use of anticoagulants
CPT/HCPCS: 36415; 85610

== ENCOUNTER 2022-07-27 09:15 | Outpatient (REF) | payer MEDICARE, SELFPAY ==
[2022-07-27 11:41] LABS: INTERNATIONAL NORM RATIO 1.4 (0.9-1.1); Prothrombin Time 16.2 SEC (10.0-13.1)
== END 2022-07-27 09:16 | disposition home or self-care (01) ==
LOC: HO.LABR 09:15
PROVIDERS: PCP Internal Medicine; Visit Provider Nurse Practitioner
DX: I48.0 Paroxysmal atrial fibrillation (principal)
CPT/HCPCS: 36415; 85610

== ENCOUNTER 2022-08-03 10:57 | Outpatient (REF) | payer MEDICARE, SELFPAY ==
[2022-08-03 14:08] LABS: INTERNATIONAL NORM RATIO 2.2 (0.9-1.1); Prothrombin Time 25.6 SEC (10.0-13.1)
== END 2022-08-03 10:58 | disposition home or self-care (01) ==
LOC: HO.HMGCLDS 10:57
PROVIDERS: PCP Internal Medicine; Visit Provider Nurse Practitioner
DX: I48.0 Paroxysmal atrial fibrillation (principal)
CPT/HCPCS: 36415; 85610

== ENCOUNTER 2022-08-10 11:31 | Outpatient (REF) | payer MEDICARE, SELFPAY ==
[2022-08-10 14:10] LABS: INTERNATIONAL NORM RATIO 2.1 (0.9-1.1); Prothrombin Time 24.9 SEC (10.0-13.1)
== END 2022-08-10 11:32 | disposition home or self-care (01) ==
LOC: HO.LABR 11:31
PROVIDERS: PCP Internal Medicine; Visit Provider Nurse Practitioner
DX: I48.0 Paroxysmal atrial fibrillation (principal)
CPT/HCPCS: 36415; 85610

== ENCOUNTER 2022-08-31 09:44 | Outpatient (REF) | payer MEDICARE, SELFPAY ==
[2022-08-31 11:30] LABS: INTERNATIONAL NORM RATIO 2.4 (0.9-1.1)
== END 2022-08-31 09:45 | disposition home or self-care (01) ==
LOC: HO.LABR 09:44
PROVIDERS: PCP Internal Medicine; Visit Provider Nurse Practitioner
DX: I48.0 Paroxysmal atrial fibrillation (principal)
CPT/HCPCS: 36415; 85610

== ENCOUNTER 2022-09-22 09:14 | Outpatient (REF) | payer MEDICARE, SELFPAY ==
[2022-09-22 11:42] LABS: INTERNATIONAL NORM RATIO 2.3 (0.9-1.1); Prothrombin Time 27.7 SEC (10.0-13.1)
== END 2022-09-22 09:15 | disposition home or self-care (01) ==
LOC: HO.HMGCLR 09:14
PROVIDERS: PCP Internal Medicine; Visit Provider Nurse Practitioner
DX: I48.0 Paroxysmal atrial fibrillation (principal)
CPT/HCPCS: 36415; 85610

== ENCOUNTER 2022-10-20 09:35 | Outpatient (REF) | payer MEDICARE, SELFPAY ==
[2022-10-20 12:09] LABS: INTERNATIONAL NORM RATIO 1.9 (0.9-1.1); Prothrombin Time 22.2 SEC (10.0-13.1)
== END 2022-10-20 09:36 | disposition home or self-care (01) ==
LOC: HO.HMGCLR 09:35
PROVIDERS: PCP Internal Medicine; Visit Provider Nurse Practitioner
DX: I48.0 Paroxysmal atrial fibrillation (principal)
CPT/HCPCS: 36415; 85610

== ENCOUNTER 2023-01-29 16:06 | Outpatient (REF) | payer MEDICARE, SELFPAY ==
[2023-01-29 16:18] LABS: MANUAL DIFF FLAG NO
[2023-01-29 17:43] LABS: Basophils Percent Auto 0.4 % (0-2); Eosinophils Percent Auto 0.4 % (0-4); Hematocrit 26.5 % (37.0-47.0); Hemoglobin 8.8 g/dl (12.0-16.0); Imm Gran Abs Auto 0.01 X10*3/uL (0.00-0.03); Imm Gran Pct Auto 0.4 % (0.0-0.4); Lymphocytes Percent Auto 35.1 % (20-40); Mean Corpuscular HGB Conc 33.2 g/dl (31.0-35.0); Mean Corpuscular Hemoglobin 32.8 pg (27.0-33.0); Mean Corpuscular Volume 98.9 fL (80.0-98.0); Monocytes Absolute Auto 0.4 X10*3/uL (0.1-1.2); Monocytes Percent Auto 14.1 % (2-11); Neutrophils Absolute Auto 1.4 x10*3/uL (2.0-8.3); Neutrophils Percent Auto 49.6 % (45-73); Red Blood Count 2.68 X10*6/uL (4.20-5.50); Red Cell Distribution Width 20.2 % (11.0-16.0); White Blood Count 2.8 X10*3/uL (4.8-10.8)
[2023-01-29 18:12] LABS: Alanine Aminotransferase 23 U/L (0-31); Albumin Level 3.5 g/dL (3.5-5.0); Alkaline Phosphatase 89 U/L (39-117); Anion Gap 14 (12-20); Aspartate Amino Transferase 33 U/L (5-31); Blood Urea Nitrogen 25 mg/dL (9-16); Carbon Dioxide 26 mmol/L (22-29); Chloride 104 mmol/L (96-108); Estimated Glomerular Filt Rate 38; Glucose Fasting 88 mg/dL (60-99); Potassium 4.3 mmol/L (3.3-5.1); Sodium 140 mmol/L (135-145); Total Protein 6.6 g/dL (6.5-8.0)
[2023-01-30 10:52] LABS: Platelet Count 18 X10*3/uL (160-400)
[2023-02-02 22:09] LABS: Cyclosporine 334 mcg/L (100-300)
== END 2023-01-29 16:07 | disposition home or self-care (01) ==
LOC: HO.LAB 16:06
PROVIDERS: PCP Internal Medicine; Visit Provider Internal Medicine
DX: D61.9 Aplastic anemia, unspecified (principal); I06.0 Rheumatic aortic stenosis; I48.0 Paroxysmal atrial fibrillation; R78.81 Bacteremia; B95.7 Other staphylococcus as the cause of diseases classified elsewhere; Z95.2 Presence of prosthetic heart valve
CPT/HCPCS: 36415; 80053; 80158; 82550; 85025

== ENCOUNTER 2023-02-03 17:02 | Outpatient (REF) | payer MEDICARE, SELFPAY ==
[2023-02-03 17:35] LABS: Eosinophils Percent Auto 0.4 % (0-4); Imm Gran Abs Auto 0.01 X10*3/uL (0.00-0.03); Imm Gran Pct Auto 0.4 % (0.0-0.4); MANUAL DIFF FLAG SCAN; SCAN SMEAR FLAG 1
[2023-02-03 17:36] LABS: Basophils Percent Auto 0.4 % (0-2); Hematocrit 22.4 % (37.0-47.0); Hemoglobin 7.5 g/dl (12.0-16.0); Lymphocytes Absolute Auto 1.1 X10*3/uL (1.2-4.9); Lymphocytes Percent Auto 41.7 % (20-40); Mean Corpuscular HGB Conc 33.5 g/dl (31.0-35.0); Mean Corpuscular Hemoglobin 32.8 pg (27.0-33.0); Mean Corpuscular Volume 97.8 fL (80.0-98.0); Monocytes Absolute Auto 0.4 X10*3/uL (0.1-1.2); Monocytes Percent Auto 13.9 % (2-11); Neutrophils Absolute Auto 1.2 x10*3/uL (2.0-8.3); Neutrophils Percent Auto 43.2 % (45-73); Red Blood Count 2.29 X10*6/uL (4.20-5.50); Red Cell Distribution Width 20.6 % (11.0-16.0); White Blood Count 2.7 X10*3/uL (4.8-10.8)
[2023-02-03 18:03] LABS: NRBC Pct Auto 4.1 /100WBC (0.0-0.2); PLT ABN DIST 1
[2023-02-03 18:11] LABS: Platelet Count 19 X10*3/uL (160-400); SLIDE REVIEW VERIFIED
== END 2023-02-03 17:03 | disposition home or self-care (01) ==
LOC: HO.LAB 17:02
PROVIDERS: PCP Internal Medicine; Visit Provider Internal Medicine
DX: D61.9 Aplastic anemia, unspecified (principal); R74.8 Abnormal levels of other serum enzymes
CPT/HCPCS: 36415; 82550; 85025

== ENCOUNTER 2023-02-23 09:54 | Outpatient (REF) | payer MEDICARE, SELFPAY ==
[2023-02-23 12:18] LABS: Alanine Aminotransferase 15 U/L (0-31); Anion Gap 14 (12-20); Aspartate Amino Transferase 25 U/L (5-31); Blood Urea Nitrogen 17 mg/dL (9-16); Calcium 9.1 mg/dL (8.4-10.2); Carbon Dioxide 24 mmol/L (22-29); Chloride 107 mmol/L (96-108); Cholesterol 182 mg/dL; Estimated Glomerular Filt Rate > 60; Glucose Fasting 93 mg/dL (60-99); HDL Cholesterol 16 mg/dL; LDL Cholesterol Calculated 128 mg/dl; Magnesium 1.3 mg/dL (1.6-2.6); Potassium 4.4 mmol/L (3.3-5.1); Sodium 141 mmol/L (135-145); Triglycerides 190 mg/dL
== END 2023-02-23 09:55 | disposition home or self-care (01) ==
LOC: HO.HMGCLDS 09:54
PROVIDERS: PCP Internal Medicine; Visit Provider Internal Medicine
DX: E87.6 Hypokalemia (principal); E83.42 Hypomagnesemia
CPT/HCPCS: 36415; 80048; 80061; 83735; 84450; 84460

== ENCOUNTER 2023-04-08 14:26 | Outpatient (REF) | payer MEDICARE, SELFPAY | END 2023-04-08 14:27 | disposition home or self-care (01) | LOC: HO.HMGCLDS 14:26 | PROVIDERS: PCP Internal Medicine; Visit Provider Internal Medicine | DX: E83.42 Hypomagnesemia (principal) | CPT/HCPCS: 36415; 83735 ==

== ENCOUNTER 2023-05-04 13:20 | Outpatient (AMB) | payer MEDICARE, SELFPAY ==
--- NOTE | 2023-05-04 14:04 | AM.OFFWIN_ITS ---
Intake Vital Signs 05/04/23 14:07 Height 5 ft 6 in BP 122/60 Blood Pressure Location Rt brachial Position Sitting Pulse 86 Pulse Source Pulse Oximeter Temp 97.3 F Temp Source Temporal Artery Scan Pulse Oximetry (%) 98 Oxygen Delivery Method Room Air Intake Visit Reasons: Ep, body aches Intake Note: Pt is here c/o having severe body aches. Pt states she has felt like this for four days. Patient Tobacco Use Status: Never used Tobacco Allergies Sulfa (Sulfonamide Antibiotics) Allergy (Intermediate, Verified 05/05/23 09:05) SKIN SLOUGHING MOUTH Medication List - Last Reconciled 05/05/23 by Breezy Virk MD acetaminophen-codeine 300-15 mg 1 tab PO BID PRN amlodipine 5 mg PO DAILY amlodipine 2.5 mg PO DAILY cholecalciferol (vitamin D3) 25 mcg PO DAILY cyclosporine modified 150 mg PO BID diclofenac sodium 1% (Arthritis Pain (diclofenac)) 2 grams topical QID docusate sodium 100 mg PO BID PRN eltrombopag (Promacta) mg PO folic acid 1 mg PO 3XW furosemide 20 mg PO DAILY PRN magnesium oxide 400 mg PO DAILY vancomycin 1 g IV Q24H HPI Ep, body aches HPI Details 82-year-old female presents to the office for a sick visit. Patient gives history of aplastic anemia. In the past week, patient is co mplaining of generalized aches and pains.Her pains are mostly in the left scapula and over her right leg. She feels pain in that area constantly. Lives independently and was discharged from the hospital recently. She walks without assistance. [facility] Medical History (Updated 03/19/23 @ 10:08 by Bernice Ca MD) Aphthous ulcer of mouth Aplastic anemia Bacteremia due to coagulase-negative Staphylococcus Central retinal artery occlusion, right eye Chronic venous insufficiency of lower extremity Essential hypertension Hearing impairment Hip fracture, left History of vertigo Hyperlipidemia Impaired fasting glucose Obesity Osteoarthritis of hip Osteoarthritis of hip Osteopenia of multiple sites Paroxysmal atrial fibrillation Retina disorder Rheumatic aortic stenosis Severe aortic stenosis Severe aortic stenosis Surgical History History of arthroscopic knee surgery History of hip surgery History of surgery S/P TAVR (transcatheter aortic valve replacement) Family History Father Medical history non-contributory Mother Medical history non-contributory Brother No problems noted. Son Substance use disorder Social History Housing: House Alcohol intake: current Alcohol intake frequency: holidays/special occasions only Patient Tobacco Use Status: Never used Tobacco e-Cigarette/Vaping Use: Never Used service: No Current occupational status: retired Cognitive needs: No Hearing needs: No Vision needs: Yes Physical Exam Vital Signs: Last Vital Signs Temp 97.3 F 05/04/23 14:07 Pulse 86 05/04/23 14:07 BP 122/60 05/04/23 14:07 Pulse Ox 98 05/04/23 14:07 Oxygen Delivery Method Room Air 05/04/23 14:07 Const General: cooperative and healthy appearing Nutritional Appearance: well nourished Orientation/consciousness: patient oriented x3 Limitations: no limitations HEENT Head: Yes normal to inspection Eyes General: appearance normal, both eyes and all related structures Neck Neck: Yes normal visual inspection Chest Chest palpation & inspection: normal palpation of entire chest wall Resp Effort & Inspection: normal respiratory effort Neuro General: patient oriented x3 Assessment & Plan Assessment & Plan (1) Aplastic anemia: Code(s): D61.9 - Aplastic anemia, unspecified Plan: The source of her myalgia is unclear. Blood work has been ordered. Tylenol with codeine has been prescribed. At the time of this dictation her blood work results were available. Blood work shows low platelets and elevated inflammatory markers. Patient was advised to contact her oncologist and follow- up. Orders: Orders Basic Metabolic Panel 05/04/23 D61.9 - Aplastic anemia, unspecified C Reactive Protein 05/04/23 D61.9 - Aplastic anemia, unspecified Liver Panel 05/04/23 D61.9 - Aplastic anemia, unspecified Complete Blood Count no Diff 05/04/23 D61.9 - Aplastic anemia, unspecified Medications: New acetaminophen-codeine 300-15 mg 1 tab PO BID PRN 14 tabs 0RF pain Coding Level of Care Code Est Pt Level 4 (17712) Diagnoses Aplastic anemia D61.9
[2023-05-04 14:07] VITALS: BP 122/60; PULSE 86; TEMP 36.3; O2SAT 98
== END 2023-05-04 15:37 | disposition home or self-care (01) ==
LOC: HO.HMGWI 13:20
PROVIDERS: PCP Internal Medicine; Visit Provider Internal Medicine
DX: D61.9 Aplastic anemia, unspecified (principal)
CPT/HCPCS: 99214

== ENCOUNTER 2023-05-04 14:41 | Outpatient (REF) | payer MEDICARE, SELFPAY ==
[2023-05-04 16:41] LABS: Hematocrit 25.1 % (37.0-47.0); Hemoglobin 8.3 g/dl (12.0-16.0); Mean Corpuscular HGB Conc 33.1 g/dl (31.0-35.0); Mean Corpuscular Hemoglobin 32.2 pg (27.0-33.0); Mean Corpuscular Volume 97.3 fL (80.0-98.0); Mean Platelet Volume 11.5 fL (9.4-12.3); Platelet Count 25 X10*3/uL (160-400); Red Blood Count 2.58 X10*6/uL (4.20-5.50); Red Cell Distribution Width 14.8 % (11.0-16.0); White Blood Count 3.2 X10*3/uL (4.8-10.8)
[2023-05-04 18:02] LABS: Alanine Aminotransferase 18 U/L (0-31); Albumin Level 3.6 g/dL (3.5-5.0); Alkaline Phosphatase 98 U/L (39-117); Anion Gap 16 (12-20); Aspartate Amino Transferase 29 U/L (5-31); Bilirubin Direct 0.5 mg/dL (0.0-0.5); Bilirubin Total 1.3 mg/dL (0.0-1.0); Blood Urea Nitrogen 30 mg/dL (9-16); C Reactive Protein 8.43 mg/dL (< or = 0.50); Calcium 9.2 mg/dL (8.4-10.2); Carbon Dioxide 20 mmol/L (22-29); Chloride 107 mmol/L (96-108); Estimated Glomerular Filt Rate 36; Glucose Random 102 mg/dL (60-115); Potassium 4.1 mmol/L (3.3-5.1); Sodium 139 mmol/L (135-145); Total Protein 7.3 g/dL (6.5-8.0)
== END 2023-05-04 14:42 | disposition home or self-care (01) ==
LOC: HO.HMGCLDS 14:41
PROVIDERS: PCP Internal Medicine; Visit Provider Internal Medicine
DX: D61.9 Aplastic anemia, unspecified (principal)
CPT/HCPCS: 36415; 80048; 80076; 85027; 86140

== ENCOUNTER → 2023-07-15 11:05 | Outpatient (AMB) | payer MEDICARE, SELFPAY ==
--- NOTE | 2023-07-15 11:29 | A.OFFPC_ITS ---
<Statement entered by Bernice Ca MD - 10/23/25 10:56> This note has been administratively?closed. Vital Signs 07/15/23 11:30 Height 5 ft 6 in Weight 139 lb BMI 22.4 BP 130/80 Blood Pressure Location Lt brachial Position Sitting Pulse 73 Pulse Source Pulse Oximeter Pulse Oximetry (%) 97 Oxygen Delivery Method Room Air Intake Visit Reasons: DISCHARGE FROM [facility] FOR INFECTION IN BLOOD Intake Note: patient is her today for discharge from [facility] for infection in blood Allergies Sulfa (Sulfonamide Antibiotics) Allergy (Intermediate, Verified 04/18/24 12:41) SKIN SLOUGHING MOUTH Tobacco use date assessed: 07/15/23 Fall risk assessment: 1 Fall in past year Last assessed Fall Risk: 07/15/23 Dental Screening Dental Screen Date: 07/15/23 Did you have a dental visit in the last 12 months?: Yes Did you have a dental problem in the last 6 months where you did not have access to dental care?: No Was dental information given to patient?: Patient has dentist [facility] Medical History (Updated 04/24/24 @ 03:07 by Bernice Ca MD) Insomnia Cough Critical limb ischemia with history of revascularization of same extremity Recurrent bacteremia History of DVT (deep vein thrombosis) UTI due to Klebsiella species Hearing impairment Essential hypertension History of vertigo Aphthous ulcer of mouth Bacteremia due to coagulase-negative Staphylococcus Aplastic anemia Rheumatic aortic stenosis Paroxysmal atrial fibrillation Impaired fasting glucose Central retinal artery occlusion, right eye Chronic venous insufficiency of lower extremity Osteopenia of multiple sites Hip fracture, left Osteoarthritis of hip Obesity Hyperlipidemia Osteoarthritis of hip Severe aortic stenosis Surgical History S/P TAVR (transcatheter aortic valve replacement) History of hip surgery History of arthroscopic knee surgery History of surgery Family History Father Medical history non-contributory Mother Medical history non-contributory Brother No problems noted. Son Substance use disorder Social History Housing: House Alcohol intake: current Alcohol intake frequency: holidays/special occasions only Patient Tobacco Use Status: Never used Tobacco e-Cigarette/Vaping Use: Never Used service: No Current occupational status: retired Cognitive needs: No Hearing needs: No Vision needs: Yes Questionnaire Thrive Questionnaire Date Thrive assessed: 09/12/21 AUDIT C Alcohol Use Questionnaire (AUDIT-C) 1. How often do you have a drink containing alcohol?: Never Total Score: 0 AMY-7 AMB Questionnaire AMY-7 Date AMY - 7 assessed: 09/12/21 Source: Developed by Drs. Apolinar Andersen, Morena Aguilar, Andrés Story and colleagues, with an educational nuvia from [employer]. Physical exam (Primary Care) Vital Signs: Last Vital Signs Pulse 73 07/15/23 11:30 BP 130/80 07/15/23 11:30 Pulse Ox 97 07/15/23 11:30 Oxygen Delivery Method Room Air 07/15/23 11:30 BMI result Body Mass Index 22.4 Tobacco/Smoking Status: Tobacco use Status Tobacco use date assessed 07/15/23 07/15/23 11:33 Patient Tobacco Use Status Never used Tobacco 07/15/23 11:33 e-Cigarette/Vaping Use Never Used 07/15/23 11:33 Thrive Assessment: Date of Thrive Assessment Date Thrive assessed 09/12/21 07/15/23 11:33 Coding Level of Care Code Admin Sign Off/No Billing Diagnoses History of bacteremia Z87.898 S/P TAVR (transcatheter aortic valve replacement) Z95.2 Essential hypertension I10 Paroxysmal atrial fibrillation I48.0 Arthritis of right knee M17.11 Primary osteoarthritis of right knee M17.11
[2023-07-15 11:30] VITALS: BP 130/80; PULSE 73; O2SAT 97; BMI 22.4
== END ==
PROVIDERS: PCP Internal Medicine; Visit Provider Internal Medicine
DX: Z87.898 Personal history of other specified conditions (principal); Z95.2 Presence of prosthetic heart valve; I10 Essential (primary) hypertension; I48.0 Paroxysmal atrial fibrillation; M17.11 Unilateral primary osteoarthritis, right knee
CPT/HCPCS: 99499

== ENCOUNTER 2023-10-14 11:47 | Outpatient (AMB) | payer MEDICARE, SELFPAY ==
[2023-10-14 12:03] VITALS: BP 130/78; PULSE 55; O2SAT 100; BMI 22.4
--- NOTE | 2023-10-14 12:03 | A.OFFPC_ITS ---
Vital Signs 10/14/23 12:03 Height 5 ft 6 in Weight 139 lb BMI 22.4 BP 130/78 Blood Pressure Location Rt femoral Position Sitting Pulse 55 Pulse Source Pulse Oximeter Pulse Oximetry (%) 100 Oxygen Delivery Method Room Air Intake Visit Reasons: [facility] Intake Note: Pt is here for HDF from [facility] Allergies Sulfa (Sulfonamide Antibiotics) Allergy (Intermediate, Verified 10/14/23 12:26) SKIN SLOUGHING MOUTH Medication List - Last Reconciled 10/14/23 by Bernice Ca MD amlodipine 5 mg PO DAILY cholecalciferol (vitamin D3) 25 mcg PO DAILY eltrombopag (Promacta) mg PO trazodone 75 mg (1.5 x 50 mg) PO BEDTIME PRN Tobacco use date assessed: 10/14/23 Fall risk assessment: 1 Fall in past year Last assessed Fall Risk: 10/14/23 Dental Screening Dental Screen Date: 10/14/23 Did you have a dental visit in the last 12 months?: Yes Did you have a dental problem in the last 6 months where you did not have access to dental care?: No Was dental information given to patient?: Patient has dentist HPI [facility] HPI Details 82-year-old lady here today for follow-u p after recent admission at [facility] from 08/25/23 to 09/12/2023. She has history of aortic stenosis status post TAVR October 2022, has pancytopenia/aplastic anemia on cyclosporine and eltrombopag. 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 She also has been found to have a left upper extremity acute limb ischemia and had emergent revascularization and started on apixaban. Her hospital course was complicated by development of acute kidney injury, which improved with holding cyclosporine. Patient has blood cultures came back-12 [id number] and has remained negative so far does was discharged with PICC line and to cont inue 6 weeks course of IV antibiotics daptomycin, along with p.o. levofloxacin, and once patient is off the IV antibiotics will need a long-term suppressive dose with doxycycline 100 mg 1 tablet p.o. twice daily, with VNA services. She is currently being followed by infectious disease and vascular surgery, and she has the printed prescription to have weekly CBC/CMP/CKs for 6 weeks while on antibiotics and pending follow-up visit with Dr. Ward , her Manuscripts Archivist, 1 week after discharge. . [facility] Medical History (Updated 10/26/23 @ 23:28 by Bernice Ca MD) Critical limb ischemia with history of revascularization of same extremity Recurrent bacteremia History of DVT (deep vein thrombosis) UTI due to Klebsiella species Hearing impairment Essential hypertension History of vertigo Aphthous ulcer of mouth Bacteremia due to coagulase-negative Staphylococcus Aplastic anemia Rheumatic aortic stenosis Paroxysmal atrial fibrillation Impaired fasting glucose Central retinal artery occlusion, right eye Chronic venous insufficiency of lower extremity Osteopenia of multiple sites Hip fracture, left Osteoarthritis of hip Obesity Hyperlipidemia Osteoarthritis of hip Severe aortic stenosis Surgical History S/P TAVR (transcatheter aortic valve replacement) History of hip surgery History of arthroscopic knee surgery History of surgery Family History Father Medical history non-contributory Mother Medical history non-contributory Brother No problems noted. Son Substance use disorder Social History Housing: House Alcohol intake: current Alcohol intake frequency: holidays/special occasions only Patient Tobacco Use Status: Never used Tobacco e-Cigarette/Vaping Use: Never Used service: No Current occupational status: retired Cognitive needs: No Hearing needs: No Vision needs: Yes Questionnaire Thrive Questionnaire Date Thrive assessed: 10/14/23 I am a: Patient What is your living situation today?: I have a steady place to live Within the past 12 months, did the food you bought not last and you didn't have the money to get more?: Never true Within the past 12 months, did you worry whether your food would run out before you got money to buy more?: Never true Do you have trouble paying for medicines?: No Do you have trouble getting transportation to medical appointments?: No Do you have trouble paying your heating and electricity bill?: No Do you have trouble taking care of your child, family member or friend?: No Do you have trouble with day-to-day activities such as bathing, preparing meals, shopping, managing finances, etc.?: No Are you currently unemployed and looking for a job?: No Are you interested in more education?: No AMY-7 AMB Questionnaire AMY-7 Date AMY - 7 assessed: 09/12/21 Source: Developed by Drs. Apolinar Andersen, Morena Aguilar, Andrés Story and colleagues, with an educational nuvia from [employer]. Review of Systems Const Denies fever(s), Denies headache(s) and Denies weakness ENT Denies ear discharge, Denies headache(s), Denies nasal congestion, Denies nasal discharge and Denies sore throat Card Denies chest pain, Denies lightheadedness, Denies palpitations and Denies dyspnea Resp Denies cough and Denies dyspnea GI Denies change in bowel habits Denies urinary frequency, Denies dysuria and Denies urinary urgency Musc Denies myalgias, Denies deformity and Reports stiffness Skin/Breast Denies lesions and Denies rash Neuro Denies headache(s) and Denies weakness Endo Denies polydipsia, Denies polyuria and Denies palpitations Adebayo/Lymph Reports no additional complaints Aller/Immun Denies seasonal rhinorrhea Physical exam (Primary Care) Vital Signs: Last Vital Signs Pulse 55 10/14/23 12:03 BP 130/78 10/14/23 12:03 Pulse Ox 100 10/14/23 12:03 Oxygen Delivery Method Room Air 10/14/23 12:03 BMI result Body Mass Index 22.4 Tobacco/Smoking Status: Tobacco use Status Tobacco use date assessed 10/14/23 10/14/23 12:13 Patient Tobacco Use Status Never used Tobacco 10/14/23 12:13 e-Cigarette/Vaping Use Never Used 10/14/23 12:13 Thrive Assessment: Date of Thrive Assessment Date Thrive assessed 09/12/21 10/14/23 12:13 Const General: comfortable and no acute distress Nutritional Appearance: obese Orientation/consciousness: patient oriented x3 HENMT Head: Yes normocephalic and Yes atraumatic General nose exam: Normal external nose present and No nasal discharge present Face and sinus: Yes face symmetric Eyes General: appearance normal, both eyes and all related structures Neck Neck: Yes full ROM, Yes no lymphadenopathy and Yes supple Resp Effort & Inspection: normal respiratory effort and able to speak in complete sentences Auscultation: clear to auscultation bilaterally and no wheezes Cardio Other: Irregularly irregular rhythm GI Other: Normal bowel sounds, soft, obese, nontender with no mass palpated Back/Spine/Pelvis Back: No back tenderness Skin General skin exam: no rashes or lesions noted and dry skin Neuro General: patient oriented x3, moves all extremities and no focal motor deficits Extrem General: Yes no joint enlargement, Yes no pedal edema and Yes no calf tenderness Assessment and Plan Assessment & Plan (1) Recurrent bacteremia: Comment: Due to Staph epidermidis Code(s): R78.81 - Bacteremia Plan: Followed by infectious disease, currently on daptomycin IV from 09/06/23-10/18/23 and levofloxacin from 09/01/23 to 10/18/2023. Once these antibiotics are completed, to start on long-term suppressive dose with doxycycline 100 mg p.o. twice a day. Will need prophylactic antibiotic prior to any dental procedure in the future. She has already has an appointment to see infectious disease on October 13 at 14:00 with Kathia Barnard (2) History of DVT (deep vein thrombosis): Comment: Of left upper extremity status post emergent revascularization , now on apixaban 5 mg twice a day Code(s): Z86.718 - Personal history of other venous thrombosis and embolism Plan: On apixaban 5 mg 1 tablet twice a day, patient to follow-up with Hematology due to discuss on how long to continue with anticoagulation (3) S/P TAVR (transcatheter aortic valve replacement): Code(s): Z95.2 - Presence of prosthetic heart valve Plan: Followed by cardiology (4) Aplastic anemia: Code(s): D61.9 - Aplastic anemia, unspecified Plan: Cyclosporine on hold, continued on eltrombopag, has an appointment for follow-up with Hematology, Dr. Ward in 1-2 weeks (5) Essential hypertension: Code(s): I10 - Essential (primary) hypertension Plan: Blood pressure stable controlled, continued on amlodipine 5 mg daily Coding Level of Care Code Est Pt Level 4 (04204) Diagnoses Recurrent bacteremia R78.81 History of DVT (deep vein thrombosis) Z86.718 S/P TAVR (transcatheter aortic valve replacement) Z95.2 Aplastic anemia D61.9 Essential hypertension I10
== END 2023-10-14 16:19 | disposition home or self-care (01) ==
PROVIDERS: PCP Internal Medicine; Visit Provider Internal Medicine
DX: R78.81 Bacteremia (principal); Z86.718 Personal history of other venous thrombosis and embolism; Z95.2 Presence of prosthetic heart valve; D61.9 Aplastic anemia, unspecified; I10 Essential (primary) hypertension
CPT/HCPCS: 99214

== ENCOUNTER 2023-10-16 10:54 | Outpatient (REF) | payer MEDICARE, SELFPAY ==
[2023-10-16 13:53] LABS: MANUAL DIFF FLAG NO
[2023-10-16 13:59] LABS: Basophils Percent Auto 0.3 % (0-2); Eosinophils Absolute Auto 0.1 X10*3/uL (0.0-0.4); Eosinophils Percent Auto 2.3 % (0-4); Hematocrit 30.8 % (37.0-47.0); Imm Gran Abs Auto 0.01 X10*3/uL (0.00-0.03); Imm Gran Pct Auto 0.3 % (0.0-0.4); Lymphocytes Absolute Auto 1.2 X10*3/uL (1.2-4.9); Lymphocytes Percent Auto 39.6 % (20-40); Mean Corpuscular HGB Conc 32.5 g/dl (31.0-35.0); Mean Corpuscular Hemoglobin 32.6 pg (27.0-33.0); Mean Corpuscular Volume 100.3 fL (80.0-98.0); Mean Platelet Volume 11.5 fL (9.4-12.3); Monocytes Absolute Auto 0.3 X10*3/uL (0.1-1.2); Monocytes Percent Auto 8.6 % (2-11); Neutrophils Absolute Auto 1.5 x10*3/uL (2.0-8.3); Neutrophils Percent Auto 48.9 % (45-73); Red Blood Count 3.07 X10*6/uL (4.20-5.50); Red Cell Distribution Width 15.3 % (11.0-16.0)
[2023-10-16 14:00] LABS: Platelet Count 30 X10*3/uL (160-400)
[2023-10-16 14:50] LABS: Alanine Aminotransferase 10 U/L (0-31); Albumin Level 3.7 g/dL (3.5-5.0); Alkaline Phosphatase 87 U/L (39-117); Anion Gap 12 (12-20); Aspartate Amino Transferase 18 U/L (5-31); Bilirubin Total 0.7 mg/dL (0.0-1.0); Blood Urea Nitrogen 22 mg/dL (9-16); Calcium 9.7 mg/dL (8.4-10.2); Carbon Dioxide 23 mmol/L (22-29); Chloride 109 mmol/L (96-108); Estimated Glomerular Filt Rate 47; Glucose Random 97 mg/dL (60-115); Sodium 140 mmol/L (135-145); Total Protein 7.8 g/dL (6.5-8.0)
== END 2023-10-16 10:55 | disposition home or self-care (01) ==
LOC: HO.HMGCLDS 10:54
PROVIDERS: PCP Internal Medicine; Visit Provider Internal Medicine
DX: I10 Essential (primary) hypertension (principal); R78.81 Bacteremia; B95.7 Other staphylococcus as the cause of diseases classified elsewhere; D61.9 Aplastic anemia, unspecified; R73.01 Impaired fasting glucose; Z87.898 Personal history of other specified conditions
CPT/HCPCS: 36415; 80053; 85025

== ENCOUNTER 2024-03-31 15:01 | Outpatient (AMB) | payer MEDICARE, SELFPAY ==
--- NOTE | 2024-03-31 15:03 | AM.OFFWIN_ITS ---
Intake Vital Signs 03/31/24 15:04 Height 5 ft 6 in Weight 155 lb BMI 25.0 BP 126/80 Blood Pressure Location Lt brachial Position Sitting Pulse 76 Pulse Source Pulse Oximeter Temp 98.6 F Temp Source Oral Pulse Oximetry (%) 99 Oxygen Delivery Method Room Air Intake Visit Reasons: EP RT ankle ?sprain Intake Note: pt here c/o RT ankle pain. Unknown cause, no fall. Swelling and pain Patient Tobacco Use Status: Never used Tobacco Allergies Sulfa (Sulfonamide Antibiotics) Allergy (Intermediate, Verified 03/31/24 15:03) SKIN SLOUGHING MOUTH Do you need a note to return to daycare/school/sports/work: No HPI HPI Comments History of Present Illness Details Patient is an 83-year-old female complaining of right ankle swelling. She does not remember any traumatic injury but states she does remember twisting it while she was walking in the grass a week ago. She states it did not swell where it away but she noticed the next day it started swelling. She can walk on it okay and it has not very painful but the swelling has not gone down. She has tried elevating it. She has not tried taking any NSAIDs for it because she can not take NSAIDs with her medical history. [facility] Medical History (Updated 03/31/24 @ 15:40 by Dora Shaw PA-C) Critical limb ischemia with history of revascularization of same extremity Recurrent bacteremia History of DVT (deep vein thrombosis) UTI due to Klebsiella species Hearing impairment Essential hypertension History of vertigo Aphthous ulcer of mouth Bacteremia due to coagulase-negative Staphylococcus Aplastic anemia Rheumatic aortic stenosis Paroxysmal atrial fibrillation Impaired fasting glucose Central retinal artery occlusion, right eye Chronic venous insufficiency of lower extremity Osteopenia of multiple sites Hip fracture, left Osteoarthritis of hip Obesity Hyperlipidemia Osteoarthritis of hip Severe aortic stenosis Surgical History S/P TAVR (transcatheter aortic valve replacement) History of hip surgery History of arthroscopic knee surgery History of surgery Family History Father Medical history non-contributory Mother Medical history non-contributory Brother No problems noted. Son Substance use disorder Social History Housing: House Alcohol intake: current Alcohol intake frequency: holidays/special occasions only Patient Tobacco Use Status: Never used Tobacco e-Cigarette/Vaping Use: Never Used service: No Current occupational status: retired Cognitive needs: No Hearing needs: No Vision needs: Yes Review of Systems Const All systems reviewed & are unremarkable except as noted in HPI and below Physical Exam Vital Signs: Last Vital Signs Temp 98.6 F 03/31/24 15:04 Pulse 76 03/31/24 15:04 BP 126/80 03/31/24 15:04 Pulse Ox 99 03/31/24 15:04 Oxygen Delivery Method Room Air 03/31/24 15:04 BMI result Body Mass Index 25.0 Const General: cooperative, healthy appearing, comfortable and no acute distress Orientation/consciousness: patient oriented x3 Limitations: ambulation with cane HEENT Head: Yes normal to inspection Resp Effort & Inspection: normal respiratory effort and able to speak in complete sentences Neuro General: patient oriented x3 Extrem Right lower extremity: full ROM, normal capillary refill and ankle Details: swelling and normal ROM; no tenderness, no unusual warmth, no abrasions, no la cerations, no ecchymosis, no foreign bodies and achilles tendon exam normal Left lower extremity: normal to inspection Assessment & Plan Assessment & Plan (1) Right ankle sprain: Code(s): S93.401A - Sprain of unspecified ligament of right ankle, initial encounter Qualifiers: Encounter type: initial encounter Involved ligament of ankle: anterior talofibular ligament Qualified Code(s): S93.491A - Sprain of other ligament of right ankle, initial encounter Plan: Wrapped with Flavio bandage, recommended icing it and resting it. If no improvement in the next 2 weeks, to follow up with primary care doctor. Plan See above Coding Level of Care Code Est Pt Level 3 (30437) Diagnoses Sprain of anterior talofibular ligament of right ankle, initial encounter S93.491A Encounter type: initial encounter Involved ligament of ankle: anterior talofibular ligament
[2024-03-31 15:04] VITALS: BP 126/80; PULSE 76; TEMP 37; O2SAT 99; BMI 25.0
== END 2024-03-31 15:48 | disposition home or self-care (01) ==
PROVIDERS: PCP Internal Medicine; Visit Provider Physician Assistant
DX: S93.491A Sprain of other ligament of right ankle, initial encounter (principal)
CPT/HCPCS: 99213

== ENCOUNTER 2024-04-18 12:05 | Outpatient (AMB) | payer MEDICARE, SELFPAY ==
[2024-04-18 12:22] VITALS: BP 140/64; PULSE 72; O2SAT 99; BMI 25.7
--- NOTE | 2024-04-18 12:28 | A.OFFPC_ITS ---
Vital Signs 04/18/24 12:22 Height 5 ft 6 in Weight 159 lb BMI 25.7 BP 140/64 H Blood Pressure Location Rt brachial Position Sitting Pulse 72 Pulse Oximetry (%) 99 Oxygen Delivery Method Room Air Intake Visit Reasons: Cough Intake Note: Pt is here today c/o cough Allergies Sulfa (Sulfonamide Antibiotics) Allergy (Intermediate, Verified 04/18/24 12:41) SKIN SLOUGHING MOUTH Medication List - Last Reconciled 04/18/24 by Bernice Ca MD amlodipine 5 mg PO DAILY cholecalciferol (vitamin D3) 25 mcg PO DAILY doxepin 6 mg PO BEDTIME PRN doxycycline hyclate 100 mg PO BID eltrombopag olamine (Promacta) mg PO Tobacco use date assessed: 04/18/24 Fall risk assessment: No Falls in past year Last assessed Fall Risk: 04/18/24 Dental Screening Dental Screen Date: 04/18/24 Did you have a dental visit in the last 12 months?: No Did you have a dental problem in the last 6 months where you did not have access to dental care?: No Was dental information given to patient?: Patient declined HPI HPI Comments History of Present Illness Details 83-year-old lady with hypertension, hear ing impaired, history uric stenosis status post TAVR, has aplastic anemia, paroxysmal atrial fibrillation, impaired fasting glucose and hyperlipidemia, here today complaining of persistent dry cough present for the last 3 weeks or more. Patient states that initially started with a runny nose and cold, which now has progressed to a cough. Denies any accompanying fever, no headache, no shortness of breath, no palpitations, no worsening of gait. She has tried taking ibuprofen which affords no relief. [facility] Medical History (Updated 04/24/24 @ 03:07 by Bernice Ca MD) Insomnia Cough Critical limb ischemia with history of revascularization of same extremity Recurrent bacteremia History of DVT (deep vein thrombosis) UTI due to Klebsiella species Hearing impairment Essential hypertension History of vertigo Aphthous ulcer of mouth Bacteremia due to coagulase-negative Staphylococcus Aplastic anemia Rheumatic aortic stenosis Paroxysmal atrial fibrillation Impaired fasting glucose Central retinal artery occlusion, right eye Chronic venous insufficiency of lower extremity Osteopenia of multiple sites Hip fracture, left Osteoarthritis of hip Obesity Hyperlipidemia Osteoarthritis of hip Severe aortic stenosis Surgical History S/P TAVR (transcatheter aortic valve replacement) History of hip surgery History of arthroscopic knee surgery History of surgery Family History Father Medical history non-contributory Mother Medical history non-contributory Brother No problems noted. Son Substance use disorder Social History Housing: House Alcohol intake: current Alcohol intake frequency: holidays/special occasions only Patient Tobacco Use Status: Never used Tobacco e-Cigarette/Vaping Use: Never Used service: No Current occupational status: retired Cognitive needs: No Hearing needs: No Vision needs: Yes Questionnaire Thrive Questionnaire Date Thrive assessed: 09/12/21 I am a: Patient What is your living situation today?: I choose not to answer this question Within the past 12 months, did the food you bought not last and you didn't have the money to get more?: I choose not to answer this question Within the past 12 months, did you worry whether your food would run out before you got money to buy more?: I choose not to answer this question Do you have trouble paying for medicines?: I choose not to answer this question Do you have trouble getting transportation to medical appointments?: I choose not to answer this question Do you have trouble paying your heating and electricity bill?: I choose not to answer this question Do you have trouble taking care of your child, family member or friend?: I choose not to answer this question Do you have trouble with day-to-day activities such as bathing, preparing meals, shopping, managing finances, etc.?: I choose not to answer this question Are you currently unemployed and looking for a job?: I choose not to answer this question Are you interested in more education?: I choose not to answer this question Please select the resources that you would like help with: Housing/Assisted Currently or been in a relationship where the following occur: I choose not to answer THRIVE Score: 0 AUDIT C Alcohol Use Questionnaire (AUDIT-C) 1. How often do you have a drink containing alcohol?: Never Total Score: 0 AMY-7 AMB Questionnaire AMY-7 Date AMY - 7 assessed: 09/12/21 Feeling nervous, anxious, or on edge: 0 = Not at all Not being able to stop or control worryin = Not at all Worrying too much about different things: 0 = Not at all Trouble relaxin = Not at all Being so restless that it is hard to sit still: 0 = Not at all Becoming easily annoyed or irritable: 0 = Not at all Feeling afraid as if something awful might happen: 0 = Not at all Total AMY-7 score (0-4 normal; 5-9 mild; 10-14 moderate; 15-21 severe): 0 Source: Developed by Drs. Apolinar Andersen, Morena Aguilar, Andrés Story and colleagues, with an educational nuvia from [employer]. Review of Systems Const All systems reviewed & are unremarkable except as noted in HPI and below Physical exam (Primary Care) Vital Signs: Last Vital Signs Pulse 72 04/18/24 12:22 BP 140/64 H 04/18/24 12:22 Pulse Ox 99 04/18/24 12:22 Oxygen Delivery Method Room Air 04/18/24 12:22 BMI result Body Mass Index 25.7 Tobacco/Smoking Status: Tobacco use Status Tobacco use date assessed 04/18/24 04/18/24 12:30 Patient Tobacco Use Status Never used Tobacco 04/18/24 12:30 e-Cigarette/Vaping Use Never Used 04/18/24 12:30 Thrive Assessment: Date of Thrive Assessment Date Thrive assessed 09/12/21 04/18/24 12:30 Currently or been in a relationship where the following occur: I choose not to a nswer Const General: comfortable and no acute distress Nutritional Appearance: obese Orientation/consciousness: patient oriented x3 HENMT Head: Yes normocephalic General nose exam: Normal external nose present and No nasal discharge present Face and sinus: Yes face symmetric Eyes General: appearance normal, both eyes and all related structures Neck Neck: Yes full ROM, Yes no lymphadenopathy and Yes supple Resp Effort & Inspection: normal respiratory effort and able to speak in complete sentences Auscultation: clear to auscultation bilaterally and no wheezes Cardio Other: Irregularly irregular rhythm GI Other: Normal bowel sounds, soft, obese, nontender with no mass palpated Back/Spine/Pelvis Back: No back tenderness Skin General skin exam: no rashes or lesions noted and dry skin Neuro General: patient oriented x3, moves all extremities and no focal motor deficits Extrem General: Yes no joint enlargement, Yes no pedal edema and Yes no calf tenderness Assessment and Plan Assessment & Plan (1) Cough: Code(s): R05.9 - Cough, unspecified Qualifiers: Cough type: subacute Qualified Code(s): R05.2 - Subacute cough Plan: Ordered a chest x-ray two views and needs a swab to check for SARs COVID , flu and RSV. Prescription sent for cetirizine 10 mg to take 1 tab at bedtime and short course of cough medicine with codeine was prescribed as well to take 5 mL every 6 hours as needed only for severe coughing fits. Advised not to take all the time. Return to clinic if no improvement of symptoms seen (2) Insomnia: Code(s): G47.00 - Insomnia, unspecified Plan: Prescription sent for eszopiclone 2 mg per tablet to take 1 tablet at bedtime as needed only for difficulty sleeping Orders: Orders XR chest 2V 04/18/24 R05.9 - Cough, unspecified SARS-CoV2/FLU/RSV 04/18/24 R05.9 - Cough, unspecified Medications: New codeine-guaifenesin 10-100 mg/5 mL (Guaifenesin AC) 5 mL PO Q6H PRN 118 mL 0RF allergy symptoms/cough eszopiclone 2 mg PO BEDTIME 20 tabs 0RF cetirizine 10 mg PO DAILY PRN 30 tabs 0RF allergy symptoms Coding Level of Care Code Est Pt Level 4 (41129) Diagnoses Subacute cough R05.2 Cough type: subacute Insomnia G47.00
== END 2024-04-18 13:29 | disposition home or self-care (01) ==
PROVIDERS: PCP Internal Medicine; Visit Provider Internal Medicine
DX: R05.2 Subacute cough (principal); G47.00 Insomnia, unspecified
CPT/HCPCS: 99214

== ENCOUNTER 2024-04-18 13:03 | Outpatient (REF) | payer MEDICARE, SELFPAY ==
--- NOTE | ~2024-04-18 | XR_ITS ---
EXAMINATION: XR CHEST CLINICAL INFORMATION: Cough COMPARISON: 03/28/2019 TECHNIQUE: 2 views of the chest were obtained. FINDINGS: No significant abnormality is noted involving the heart, lungs, mediastinum, bony thorax or soft tissues. Patient is status post TAVR XR/XR chest 2V IMPRESSION: No acute abnormality
== END 2024-04-18 13:04 | disposition home or self-care (01) ==
LOC: HO.HMGCX 13:03
PROVIDERS: PCP Internal Medicine; Visit Provider Internal Medicine
DX: R05.9 Cough, unspecified (principal)
CPT/HCPCS: 0241U; 71046